=== PATIENT | female | born 1990 | race Hispanic/Latino ===

== ENCOUNTER 2017-11-08 16:35 | Emergency (ER) | payer SELFPAY ==
[2017-11-08 16:46] VITALS: BP 126/70; PULSE 72; TEMP 97.9; O2SAT 98
--- NOTE | 2017-11-08 17:24 | C.PDOC ---
History Of Present Illness 27 y/o female presents to ED for test. pt thinks her last menses on Sep 24, and sts she has done several home tests with questionable positive results. denies abdominal pain, no vaginal bleeding, no urinary complaints. Time Seen by Provider: 11/08/17 17:01 Chief Complaint (Nursing): Female Genitourinary History Per: Patient History/Exam Limitations: no limitations Associated Symptoms: denies: Nausea, Vomiting, Urinary Symptoms Past Medical History Reviewed: Historical Data, Nursing Documentation, Vital Signs Vital Signs: Last Vital Signs Temp 97.9 F 11/08/17 16:41 Pulse 72 11/08/17 16:41 Resp 18 11/08/17 17:34 BP 126/70 11/08/17 16:41 Pulse Ox 98 11/08/17 18:23 - Medical History PMH: No Chronic Diseases Family History: States: Unknown Family Hx - Social History Hx Alcohol Use: Yes Hx Substance Use: No - Immunization History Hx Tetanus Toxoid Vaccination: No Hx Influenza Vaccination: No Hx Pneumococcal Vaccination: No Review Of Systems Gastrointestinal: Negative for: Abdominal Pain Genitourinary: Negative for: Dysuria, Vaginal Discharge, Vaginal Bleeding, Pelvic Pain Neurological: Negative for: Weakness, Numbness Physical Exam - Physical Exam Appears: Non-toxic, No Acute Distress Skin: Warm, Dry Gastrointestinal/Abdominal: Soft, No Tenderness ED Course And Treatment O2 Sat by Pulse Oximetry: 98 Medical Decision Making Medical Decision Making: pt not ; d/c home with power checker follow up. Disposition Counseled Patient/Family Regarding: Diagnosis, Need For Followup - Disposition Referrals: at [facility] [Outside] Disposition: HOME/ ROUTINE Disposition Time: 17:26 Condition: GOOD Additional Instructions: Please follow up at [facility] or our medical clinic- when making appointment, ask for womens clinic. Instructions: Tests Forms: [facility] [facility] ([place]), General Discharge Instructions - Clinical Impression Clinical Impression: examination or test, negative result
[2017-11-08 17:40] VITALS: RESP 18
== END 2017-11-08 17:34 | disposition home or self-care (01) ==
LOC: C.ER 16:35
DX: Z32.02 Encounter for pregnancy test, result negative (principal)